=== PATIENT | male | born 1985 | race African-American/Black ===

== ENCOUNTER 2020-09-27 12:17 | Emergency (ER) | payer OTHER ==
[~2020-09-27] VITALS: Ht 172.7 cm; Wt 100.0 kg
--- NOTE | 2020-09-27 12:32 | PHYS DOC ---
Past History Past Medical History: Hypertension Smoking: Non-smoker Alcohol Use: Sober Drug Use: Amphetamine, Cocaine, Methamphetamine Adult General Chief Complaint Chief Complaint: FEVER HPI HPI Patient is a 35-year-old male who presents for constellation of symptoms. Onset was yesterday morning shortly after waking up. Reports initial onset of URI- like symptoms that later developed into nausea and diarrhea. Nothing known makes better, p.o. intake makes worse. Associated symptoms include watery eyes, rhinorrhea, sneezing, postnasal drip, generalized weakness, chills, diaphoresis, shortness of breath at rest, abdominal cramping, nausea and diarrhea. He denies measurable fever greater than 100.4, recent travel, history of immunosuppression, chest pain, abdominal pain, neuro symptoms. Patient has distant history of hypertension and was previously on antihypertensive medications but states he failed to follow-up and refill of these, has been out of them for years. Also reports recent COVID-19 infection March 2020 while in group home. Was recently discharged from group home and living in a retirement house with other individuals that he suspects " might have Covid, I do not know. People do that all the time there and do not tell noone". States the retirement house has not been following proper social distancing, mask wearing protocols etc. Review of Systems Review of Systems Fourteen body systems of review of systems have been reviewed. See HPI for pertinent positives and negative responses, other pan all other systems are negative, non-pertinent or non-contributory Physical Exam Physical Exam Constitutional: Well developed, well nourished, no acute distress, non-toxic appearance. HENT: Normocephalic, atraumatic, bilateral external ears normal, oropharynx moist, no oral exudates, nose normal. Eyes: PERRLA, EOMI, conjunctiva normal, no discharge. Neck: Normal range of motion, no tenderness, supple, no stridor. Cardiovascular: Heart rate regular, sinus rhythm, no murmurs rubs or gallops Lungs & Thorax: Bilateral breath sounds clear to auscultation Abdomen: Bowel sounds normal, soft, no tenderness, no masses, no pulsatile masses. Nonsurgical abdomen, no peritoneal signs Skin: Warm, dry, no erythema, no rash. Back: No tenderness, no CVA tenderness. Extremities: No tenderness, no cyanosis, no clubbing, ROM intact, no edema. Neurologic: Alert and oriented X 3, grossly normal motor & sensory function, no focal deficits noted. Psychologic: Affect normal, judgement normal, mood normal. Current Patient Data Vital Signs Vital Signs Date Time Temp Pulse Resp B/P (MAP) Pulse Ox O2 Delivery O2 Flow Rate FiO2 09/27/20 12:41 98.1 127 22 121/79 (93) 96 Room Air Vital Signs Date Time Temp Pulse Resp B/P (MAP) Pulse Ox O2 Delivery O2 Flow Rate FiO2 09/27/20 14:44 98.4 86 18 164/104 (124) 98 Room Air Lab Results Laboratory Tests Test 09/27/20 12:40 09/27/20 13:10 09/27/20 13:45 White Blood Count 5.5 x10^3/uL Red Blood Count 4.32 x10^6/uL Hemoglobin 13.6 g/dL Hematocrit 40.7 % Mean Corpuscular Volume 94 fL Mean Corpuscular Hemoglobin 32 pg Mean Corpuscular Hemoglobin Concent 34 g/dL Red Cell Distribution Width 15.5 % Platelet Count 267 x10^3/uL Neutrophils (%) (Auto) 66 % Lymphocytes (%) (Auto) 23 % Monocytes (%) (Auto) 8 % Eosinophils (%) (Auto) 1 % Basophils (%) (Auto) 1 % Neutrophils # (Auto) 3.6 x10^3uL Lymphocytes # (Auto) 1.3 x10^3/uL Monocytes # (Auto) 0.5 x10^3/uL Eosinophils # (Auto) 0.1 x10^3/uL Basophils # (Auto) 0.1 x10^3/uL Sodium Level 142 mmol/L Potassium Level 3.2 mmol/L Chloride Level 104 mmol/L Carbon Dioxide Level 26 mmol/L Anion Gap 12 Blood Urea Nitrogen 11 mg/dL Creatinine 1.8 mg/dL Estimated GFR (Cockcroft-Gault) 51.6 BUN/Creatinine Ratio 6 Glucose Level 119 mg/dL Lactic Acid Level 2.4 mmol/L Calcium Level 9.6 mg/dL Total Bilirubin 0.3 mg/dL Aspartate Amino Transf (AST/SGOT) 27 U/L Alanine Aminotransferase (ALT/SGPT) 54 U/L Alkaline Phosphatase 64 U/L Creatine Kinase 699 U/L Troponin I Quantitative < 0.017 ng/mL TB-Kup-[id number]-Type Natriuretic Peptide 21 pg/mL Total Protein 8.1 g/dL Albumin 4.3 g/dL Albumin/Globulin Ratio 1.1 Influenza Type A (Rapid) Negative Influenza Type B (Rapid) Negative Urine Collection Type Unknown Urine Color Niya Urine Clarity Hazy Urine pH 5.5 Urine Specific [place] >=1.030 Urine Protein Trace Urine Glucose (UA) Neg mg/dL Urine Ketones (Stick) Neg mg/dL Urine Blood Neg Urine Nitrite Neg Urine Bilirubin Neg Urine Urobilinogen Dipstick 0.2 mg/dL Urine Leukocyte Esterase Neg Urine RBC 0 /HPF Urine WBC 0 /HPF Urine Squamous Epithelial Cells Few /LPF Urine Bacteria 0 /HPF Urine Mucus Mod /LPF Urine Opiates Screen Neg Urine Methadone Screen Neg Urine Barbiturates Neg Urine Phencyclidine Screen Neg Urine Amphetamine/Methamphetamine Neg Urine Benzodiazepines Screen Neg Urine Cocaine Screen Neg Urine Cannabinoids Screen Neg Urine Ethyl Alcohol Neg Current Medications Medications (Trade) Dose Ordered Sig/Sigifredo Route PRN Reason Start Time Stop Time Status Last Admin Dose Admin Sodium Chloride 1,000 ml @ 1,000 mls/hr 1X ONCE IV 09/27/20 13:00 09/27/20 13:59 UNV 09/27/20 13:00 Sodium Chloride 1,000 ml @ 1,000 mls/hr 1X ONCE IV 09/27/20 13:30 09/27/20 14:29 UNV 09/27/20 13:56 Potassium Chloride (Klor-Con) 40 meq 1X ONCE PO 09/27/20 14:30 09/27/20 14:31 UNV 09/27/20 14:43 EKG EKG EKG ordered and interpreted by myself at 1306 hrs. as sinus rhythm at 111 bpm, unremarkable intervals, no axis deviation, no acute ischemic findings, no STEMI Radiology/Procedures Radiology/Procedures XR CHEST 1V Clinical History: Reason: SHOB Hx: Covid / Spl. Instructions: / History: Technique: AP view of the chest was obtained at 09/27/2020 12:58 PM. Comparison: None. Findings: The cardiomediastinal silhouette is normal. The pulmonary vasculature is normal. The lungs and pleural margins are clear. Impression: No evidence of an acute cardiopulmonary process. Electronically signed by: Wade Burgos III, MD (09/27/2020 1:15 PM) [facility] Heart Score C/O Chest Pain: No HEART Score for Chest Pain: HEART Score for Chest Pain Response (Comments) Value History Slighlty/Non-Suspicious 0 Age < 45 0 Risk Factors 1 or 2 Risk Factors 1 Total 1 Risk Factors: Risk Factors: DM, Current or recent (<one month) smoker, HTN, HLP, family history of CAD, obesity. Risk Scores: Risk Factors: DM, Current or recent (<one month) smoker, HTN, HLP, family history of CAD, obesity. Course & Med Decision Making Course & Med Decision Making Discussed most likely diagnosis of viral syndrome. Patient presented with sinus tachycardia likely due to dehydration that resolved with x2 L IV normal saline. Discussed findings of AYDEN and elevated lactic acid likely from dehydration, patient has no history of kidney disease. 40 mEq potassium given Discussed little indication for further diagnostic work-up in ER setting given nontoxic appearance of patient who is afebrile and tolerating p.o. intake. Retested patient for COVID-19 with results pending, he was educated on quarantine protocols etc. Strict return precautions were discussed with good understanding by patient, all questions and concerns addressed prior to ER departure Dragon Disclaimer Dragon Disclaimer This electronic medical record was generated, in whole or in part, using a voice recognition dictation system. Departure Departure: Impression: Primary Impression: Viral syndrome Additional Impressions: Person under investigation for COVID-19 Sinus tachycardia AYDEN (acute kidney injury) Hypokalemia Disposition: 01 DC HOME SELF CARE/HOMELESS Condition: IMPROVED Referrals: PCPBOONE (PCP) Patient Instructions: Acute Kidney Injury Additional Instructions: You were seen for URI-like symptoms, subjective fever, body aches, and possible infection with COVID-19. Your physical exam was reassuring. Your chest x-ray was normal. We tested you for COVID-19 but this test does not come back for 1 to 2 days. In the meantime you need to quarantine yourself at home away from all other individuals, especially those who are elderly or have any other chronic health issues or an immunocompromised status. You should return to the ED if you develop worsening cough, shortness of breath, chest pain, or any other new or concerning symptoms. Alternate Tylenol and ibuprofen as needed for body aches and pain. If your test does come back positive you need to quarantine yourself for 10 days until symptom-free. You should make sure to drink plenty of fluids and get plenty of rest. Please see his attached resource sheet to contact a local primary care provider of your liking to follow-up on today's ER visit in addition to follow-up and establish care Problem Qualifiers HOMA SMART DO Sep 27, 2020 12:32
[2020-09-27] MEDS ORDERED: IV NORMAL SALINE 1,000ML 1,000 ML IV ONE ×2 (13:00→13:30)
--- NOTE | 2020-09-27 13:13 | EKG ---
[address] [address] Test Date: 2020-09-27 Test Time: 13:01:43 Pat Name: BRAULIO GOLDMAN Department: Room: Gender: M Casing Runner: AMAIRANI : 1985 Requested By: HOMA SMART Order Number: [id number] Reading MD: Measurements Intervals [place] Rate: 111 P: 30 VT: 162 QRS: 33 QRSD: 80 T: 18 QT: 310 QTc: 425 Interpretive Statements SINUS TACHYCARDIA OTHERWISE NORMAL ECG RI6.02 No previous ECG available for comparison
--- NOTE | 2020-09-27 13:18 | RAD ---
XR CHEST 1V Clinical History: Reason: SHOB Hx: Covid / Spl. Instructions: / History: Technique: AP view of the chest was obtained at 09/27/2020 12:58 PM. Comparison: None. Findings: The cardiomediastinal silhouette is normal. The pulmonary vasculature is normal. The lungs and pleura l margins are clear. Impression: No evidence of an acute cardiopulmonary process. Electronically signed by: Wade Burgos III, MD (09/27/2020 1:15 PM) [facility]
[2020-09-27 13:25] LABS: BASO # 0.1 x10^3/uL (0.0-0.2); BASO % 1 % (0-3); EOS # 0.1 x10^3/uL (0.0-0.7); EOS % 1 % (0-3); HEMATOCRIT 40.7 % (39.0-53.0); HEMOGLOBIN 13.6 g/dL (13.0-17.5); LYMPH # 1.3 x10^3/uL (1.0-4.8); LYMPH % 23 % (24-48); MEAN CORPUSCULAR HEMOGLOBIN 32 pg (25-35); MEAN CORPUSCULAR HGB CONC 34 g/dL (31-37); MEAN CORPUSCULAR VOLUME 94 fL (79-100); MONO # 0.5 x10^3/uL (0.0-1.1); MONO % 8 % (0-9); NEUT # 3.6 x10^3uL (1.8-7.7); NEUT % 66 % (31-73); PLATELET COUNT 267 x10^3/uL (140-400); RED BLOOD COUNT 4.32 x10^6/uL (4.30-5.70); RED CELL DISTRIBUTION WIDTH 15.5 % (11.5-14.5); WHITE BLOOD COUNT 5.5 x10^3/uL (4.0-11.0)
[2020-09-27 13:41] LABS: ALBUMIN 4.3 g/dL (3.4-5.0); ALBUMIN/GLOBULIN RATIO 1.1 (1.0-1.7); CALCIUM 9.6 mg/dL (8.5-10.1); CREATININE 1.8 mg/dL (0.7-1.3); GFR 51.6; TOTAL BILIRUBIN 0.3 mg/dL (0.2-1.0); TOTAL PROTEIN 8.1 g/dL (6.4-8.2)
[2020-09-27 13:53] LABS: INFLUENZA A PATIENT NEGATIVE (NEGATIVE); INFLUENZA B PATIENT NEGATIVE (NEGATIVE)
[2020-09-27 14:12] LABS: POTASSIUM 3.2 mmol/L (3.5-5.1)
[2020-09-27 14:19] LABS: BARBITURATES NEG (NEG); BENZODIAZEPINES NEG (NEG); CANNABINOIDS NEG (NEG); COCAINE NEG (NEG); METHADONE NEG (NEG); OPIATES NEG (NEG); PHENCYCLIDINE NEG (NEG)
[2020-09-27 14:29] LABS: AMPHETAMINE/METHAMPHETAMINE NEG (NEG)
[2020-09-27] MEDS ORDERED: POTASSIUM CHLORIDE 20 MEQ TABLET.ER. PO ONE ×2 (14:30→14:41)
[2020-09-27 14:31] LABS: BACTERIA,URINE 0 /HPF (0-FEW); BILIRUBIN,URINE NEG (NEG); CLARITY,URINE HAZY; COLOR,URINE AMBER; GLUCOSE,URINE NEG (NEG); NITRITE,URINE NEG (NEG); RBC,URINE 0 /HPF (0-2); SQUAMOUS EPITHELIAL CELL,UR FEW /LPF; UROBILINOGEN,URINE 0.2 mg/dL (0.2 mg/dL); WBC,URINE 0 /HPF (0-4)
[2020-09-27 14:58] VITALS: BP 172/109
--- NOTE | 2020-09-29 10:34 | NUR ---
IP note: Director of facility where pt is residing, [facility], called to obtain results. Results not available at this time, but will contact w/results. Please have pt available to verify that results may be given, or fax authorization.
--- NOTE | 2020-09-30 07:39 | NUR ---
IP: Pt called to get COVID results. Informed him of negative COVID results. Pt verbalized understanding.
== END 2020-09-27 14:52 | disposition home or self-care (01) ==
LOC: ER 12:17
DX: B34.9 Viral infection, unspecified (principal); Z20.822 Contact with and (suspected) exposure to COVID-19; R00.0 Tachycardia, unspecified; N17.9 Acute kidney failure, unspecified; E87.6 Hypokalemia; I10 Essential (primary) hypertension
CPT/HCPCS: 36415; 71045; 80053; 80307; 81001; 82550; 83605; 83880; 84484; 85025; 87040; 87804; 93005; 96360; 96361; 99285; C9803; J7030; U0003; U0005